=== PATIENT | female | born 1975 | race Caucasian/White ===

== ENCOUNTER 2021-09-21 21:20 | Emergency (ER) | payer BC ==
[~2021-09-21] VITALS: Ht 175.3 cm; Wt 81.6 kg
[2021-09-21] MEDS ORDERED: IV NS 0.9% 1,000 ML IV STA ×2 (22:44→23:14)
--- NOTE | 2021-09-21 22:44 | NUR ---
ADDENDUM: Intravenous End Time Documentation: 1. Normal saline 1 liter (IV-WO) : start time:2244 pm ; end time:2344 pm : IV site:LAC PIV # 20 Port # 1 2. Normal saline 1 liter (IV-WO) : start time:2344 pm ; end time:0044 pm : IV site:LAC PIV # 20 Port # 1
--- NOTE | 2021-09-21 22:47 | NUR ---
PATIENT BROUGHT TO ER BED 09; PATIENT BIB FAMILY MEMBER; A/OX4, BREATHING EVEN AND UNLABORED; NO SOB NOTED; REPORTS HEADACHE PAIN; TOLERATING ROOM AIR WELL; PATIENT REPORTED ON TUESDAY SHE WAS VOMITING D/T GASTRITIS; PATIENT MENTIONED SHE WAS BENT OVER IN THE BATHROOM FOR A LONG PERIOD OF TIME, WHICH SHE THINKS CONTRIBUTED TO HER STIFF NECK; PATIENT SLEPT FINE AND WOKE UP OKAY THE NEXT DAY Tuesday; PATIENT REPORTED SHE STARTED TO FEEL HEADACHE AT NIGHT BEFORE SHE SLEPT; TODAY PATIENT REPORTED PAINFUL HEADACHE NOT CONTROLLED/RELIEVED WITH TYLENOL OR MOTRIN; APPROX 1700 TODAY, PATIENT STARTED TO SEE BRIGHT LIGHT/LINES (VISION CHANGES) AND SHORTLY AFTER, PATIENT STATED SHE FELT RIGHT SIDE NUMBNESS ON HER RIGHT HEAD; NON-RADIATING; PATIENT HOOKED ON TO MONITOR, VSS; AWAITING MD FOR [facility]
[2021-09-21] MEDS ORDERED: diphenhydrAMINE HCL 50 MG/ML VIAL IV ONE (23:00)
[2021-09-21] MEDS ORDERED: METOCLOPRAMIDE HCL 10 MG/2 ML VIAL IV ONE (23:00)
[2021-09-21] MEDS ORDERED: KETOROLAC TROMETHAMINE INJ 30 MG/ML VIAL IV ONE (23:00)
[2021-09-21 23:08] LABS: BASOPHILS # (AUTO) 0.2 K/uL (0.0-0.2); BASOPHILS % (AUTO) 2.1 % (0.0-2.0); EOSINOPHILS % (AUTO) 2.1 % (0.0-6.0); HEMATOCRIT 39 % (33-45); HEMOGLOBIN 12.8 g/dL (11.5-14.8); LYMPHOCYTES # (AUTO) 2.9 K/uL (0.8-4.8); LYMPHOCYTES % (AUTO) 30.8 % (20.0-44.0); MEAN CORPUSCULAR HGB CONC 33 g/dl (31.0-36.0); MEAN CORPUSCULAR VOLUME 89 fL (82-100); MONOCYTES # (AUTO) 0.8 K/uL (0.1-1.30); MONOCYTES % (AUTO) 8.9 % (2.0-12.0); NEUTROPHILS # (AUTO) 5.2 K/uL (1.8-8.9); NEUTROPHILS % (AUTO) 56.1 % (43.0-81.0); PLATELET COUNT (AUTO) 219 K/uL (150-450); WHITE BLOOD COUNT (AUTO) 9.3 K/uL (4.3-11.0)
[2021-09-21 23:19] LABS: CALCIUM, SERUM 8.9 mg/dL (8.5-10.1); CREATININE 0.7 mg/dL (0.6-1.3); POTASSIUM 3.8 mmol/L (3.5-5.1)
[2021-09-21] MEDS ORDERED: KETOROLAC TROMETHAMINE 15 MG/ML VIAL ONE (23:22)
[2021-09-21] MEDS ORDERED: diphenhydrAMINE HCL 50 MG/ML VIAL ONE (23:23)
[2021-09-21] MEDS ORDERED: METOCLOPRAMIDE HCL 10 MG/2 ML VIAL ONE (23:23)
--- NOTE | 2021-09-21 23:37 | NUR ---
IV LINE ESTABLISHED; L AC #20; ALL DUE MEDS GIVEN
--- NOTE | 2021-09-22 00:54 | NUR ---
PT VERBALIZED FEELING MUCH BETTER AND REPORTED MEDS GIVEN HELPED HER; VSS; PATIENT SIGNED DISCHARGE PAPERWORK AND LEFT ER IN STABLE CONDITION; AMBULATORY WITH STEADY GAIT
[2021-09-22 00:57] VITALS: BP 126/83
== END 2021-09-22 00:58 | disposition home or self-care (01) ==
LOC: ER 21:29
DX: R51.9 Headache, unspecified (principal); Z87.19 Personal history of other diseases of the digestive system; Z90.49 Acquired absence of other specified parts of digestive tract
CPT/HCPCS: 36415; 80048; 85025; 96361 ×2; 96374; 96375; 99284; J1200; J1885; J2765; J7030 ×2

== ENCOUNTER 2022-01-14 20:10 | Emergency (ER) | payer BC ==
[~2022-01-14] VITALS: Ht 175.3 cm; Wt 79.4 kg
--- NOTE | 2022-01-14 20:57 | NUR ---
BIBSELF C/O ABD PAIN, DIARRHEA X1DAY. TEMP 102 F ON TUESDAY. UPON TRIAGE TEMP 97.8F. PT TESTED COVID NEGATIVE ON TUESDAY. PT A/OX4. TOLERATING R/A WELL WITH NO SOB. PT AMBULATORY WITH STEADY GAIT. SAFETY MEASURES IN PLACE.
--- NOTE | 2022-01-14 21:07 | NUR ---
URINE COLLECTED AND SENT TO LAB
[2022-01-14 21:42] LABS: BASOPHILS % (AUTO) 0.8 % (0.0-2.0); EOSINOPHILS % (AUTO) 0.7 % (0.0-6.0); HEMATOCRIT 39 % (33-45); HEMOGLOBIN 12.5 g/dL (11.5-14.8); LYMPHOCYTES # (AUTO) 1.6 K/uL (0.8-4.8); LYMPHOCYTES % (AUTO) 26.9 % (20.0-44.0); MEAN CORPUSCULAR HGB CONC 32 g/dl (31.0-36.0); MEAN CORPUSCULAR VOLUME 88 fL (82-100); MONOCYTES # (AUTO) 0.7 K/uL (0.1-1.30); MONOCYTES % (AUTO) 12.3 % (2.0-12.0); NEUTROPHILS # (AUTO) 3.5 K/uL (1.8-8.9); NEUTROPHILS % (AUTO) 59.3 % (43.0-81.0); PLATELET COUNT (AUTO) 194 K/uL (150-450); RED BLOOD CELL COUNT(AUTO) 4.36 MIL/uL (4.0-5.2)
[2022-01-14 21:58] LABS: BILIRUBIN,URINE NEGATIVE (NEGATIVE); COLOR,URINE YELLOW (YELLOW); LEUKOCYTE ESTERASE ,URINE NEGATIVE (NEGATIVE); NITRITE, URINE NEGATIVE (NEGATIVE); PH,URINE 8.5 (5.0-8.0); PROTEIN,URINE TRACE mg/dl (NEGATIVE); UGLUCOSE NEGATIVE (NEGATIVE)
[2022-01-14 21:59] LABS: ALBUMIN 3.4 g/dL (3.4-5.0); BILIRUBIN,DIRECT 0.1 mg/dL (0.0-0.2); BILIRUBIN,TOTAL 0.5 mg/dL (0.2-1.0); CALCIUM, SERUM 8.6 mg/dL (8.5-10.1); CREATININE 0.7 mg/dL (0.6-1.3); POTASSIUM 3.9 mmol/L (3.5-5.1); TOTAL PROTEIN, SERUM 7.3 g/dL (6.4-8.2)
[2022-01-14 22:13] LABS: BACTERIA,URINE 1+ /HPF (None Seen); RBC,URINE 0-2 /HPF (0-2); WBC,URINE 0-2 /HPF (0-3)
[2022-01-14 22:14] LABS: MUCUS,URINE Few /LPF (None Seen)
--- NOTE | 2022-01-14 22:24 | NUR ---
RAC #20G S/L. COVID ANTIGEN SWAB COLLECTED AND SENT TO LAB
[2022-01-14] MEDS ORDERED: ONDANSETRON HCL/PF 4 MG/2 ML VIAL ONE (22:28)
[2022-01-14] MEDS ORDERED: MORPHINE SULFATE INJ 4 MG/ML DISP.SYRIN ONE (22:28)
[2022-01-14] MEDS ORDERED: IV NS 0.9% 1,000 ML BAG IV ONE (22:30)
[2022-01-14] MEDS ORDERED: ONDANSETRON HCL/PF 4 MG/2 ML VIAL IVP ONE (22:30)
[2022-01-14] MEDS ORDERED: MORPHINE SULFATE INJ 2 MG/ML DISP.SYRIN IV ONE (22:30)
--- NOTE | 2022-01-14 22:31 | NUR ---
PT RETURNED TO ER BED [address]
[2022-01-14] MEDS ORDERED: KETOROLAC TROMETHAMINE INJ 30 MG/ML VIAL ONE (22:37)
[2022-01-14] MEDS ORDERED: KETOROLAC TROMETHAMINE INJ 30 MG/ML VIAL IV ONE (23:00)
--- NOTE | 2022-01-15 00:08 | NUR ---
Patient does not wish to proceed with medical care recommended by Dr. Aquino. Patient given information related to possible complications, up to and including , which could occur as a result of leaving the hospital at this time. Patient verbalizes understanding of risks involved due to leaving against medical advice. Patient has signed AMA form.IV removed. Catheter intact and site benign. Pressure and 4x4 applied to site. No bleeding noted.
[2022-01-15 00:13] VITALS: BP 123/77
== END 2022-01-15 00:14 | disposition left against medical advice (07) ==
LOC: ER 20:26
DX: R10.9 Unspecified abdominal pain (principal); R19.7 Diarrhea, unspecified; Z20.822 Contact with and (suspected) exposure to COVID-19; Z53.29 Procedure and treatment not carried out because of patient's decision for other reasons; R73.03 Prediabetes; Z90.49 Acquired absence of other specified parts of digestive tract; R42 Dizziness and giddiness
CPT/HCPCS: 99284; 74176; 96374; 96361; 87426; 85025; 80048; 83690; 80076; 81001; 36415; J2270; J1885; J2405; J7030; C9803

== ENCOUNTER 2022-05-02 00:14 | Emergency (ER) | payer BC ==
[~2022-05-02] VITALS: Ht 175.3 cm; Wt 77.1 kg
--- NOTE | 2022-05-02 01:11 | NUR ---
Patient came in to the er c/o dysuria since wednesday 12/13 pain scale. On room air, breathing evenly and unlabored. Kept comfortable, will continue to monitor accordingly.
[2022-05-02 01:44] LABS: BILIRUBIN,URINE NEGATIVE (NEGATIVE); COLOR,URINE DARK YELLOW (YELLOW); LEUKOCYTE ESTERASE ,URINE NEGATIVE (NEGATIVE); NITRITE, URINE POSITIVE (NEGATIVE); PROTEIN,URINE 3+ mg/dl (NEGATIVE); UGLUCOSE NEGATIVE (NEGATIVE)
[2022-05-02 01:46] LABS: BACTERIA,URINE Rare /HPF (None Seen); RBC,URINE 21-50 /HPF (0-2)
[2022-05-02 01:47] LABS: SQUAMOUS EPITHELIAL CELL,UR Few /HPF (None Seen)
[2022-05-02] MEDS ORDERED: NITR100C6 PO ×2 (01:55→12:38)
[2022-05-02] MEDS ORDERED: NITROFURANTOIN/MONOHYDRATE MACROCRYSTALS 100 MG CAPSULE PO ONE (02:00)
[2022-05-02] MEDS ORDERED: NITROFURANTOIN/MONOHYDRATE MACROCRYSTALS 100 MG CAPSULE ONE (02:01)
[2022-05-02 02:08] VITALS: BP 135/71
--- NOTE | 2022-05-02 02:09 | NUR ---
Patient discharged to home in stable condition. Written and verbal after care instructions given. Patient verbalizes understanding of instruction.
== END 2022-05-02 02:09 | disposition home or self-care (01) ==
LOC: ER 00:27
DX: N39.0 Urinary tract infection, site not specified (principal); Z90.49 Acquired absence of other specified parts of digestive tract; Z79.899 Other long term (current) drug therapy
CPT/HCPCS: 81001; 84703-TC; 87086-TC